=== PATIENT | female | born 1970 | race Caucasian/White ===

== ENCOUNTER 2018-01-23 13:48 | Emergency (ER) | payer OTHER ==
[~2018-01-23] VITALS: Ht 162.6 cm; Wt 81.7 kg
[~2018-01-23 13:48] MED LIST: ALBU90OI INH; CODGUAEL PO; Cyclobenzaprine5 MG PO; GABA300 PO; HIGH POTENCY TOP; HYDPAM50 PO; IBUP400 PO; IBUP800 PO; PRED10 PO; PROACE100 PO; PROMETHAZINE-D473 ML PO; Percocet 5-3251 EACH PO; Prednisone20 MG PO; Ultram50 MG PO; Zithromax250 MG PO
[2018-01-23] MEDS ORDERED: Flexi Joint Ta1 EAC1 PO (15:09)
[2018-01-23] MEDS ORDERED: IBUP600 PO (20:24)
== END 2018-01-23 21:35 | disposition home or self-care (01) ==
LOC: ER 13:48
DX: M19.011 Primary osteoarthritis, right shoulder (principal); F17.210 Nicotine dependence, cigarettes, uncomplicated; Z59.0 Homelessness; Z88.0 Allergy status to penicillin; Z88.8 Allergy status to other drugs, medicaments and biological substances; Z88.5 Allergy status to narcotic agent; Z79.899 Other long term (current) drug therapy; Z86.73 Personal history of transient ischemic attack (TIA), and cerebral infarction without residual deficits
CPT/HCPCS: 73030

== ENCOUNTER 2018-05-24 20:00 | Emergency (ER) | payer OTHER ==
[~2018-05-24] VITALS: Ht 162.6 cm; Wt 81.7 kg
[~2018-05-24 20:00] MED LIST changes: +Flexi Joint Ta1 EAC1 PO; +IBUP600 PO
[2018-05-24] MEDS ORDERED: IBUP800 PO (21:06)
== END 2018-05-24 21:09 | disposition home or self-care (01) ==
LOC: ER 20:00
DX: S60.221A Contusion of right hand, initial encounter (principal); F17.210 Nicotine dependence, cigarettes, uncomplicated; Z88.0 Allergy status to penicillin; Z88.8 Allergy status to other drugs, medicaments and biological substances; Z88.5 Allergy status to narcotic agent; Z79.899 Other long term (current) drug therapy; Z86.73 Personal history of transient ischemic attack (TIA), and cerebral infarction without residual deficits; W22.8XXA Striking against or struck by other objects, initial encounter
CPT/HCPCS: 73130; 99283-25

== ENCOUNTER 2018-09-30 02:14 | Emergency (ER) | payer OTHER ==
[~2018-09-30] VITALS: Ht 162.6 cm; Wt 83.9 kg
[~2018-09-30 02:14] MED LIST changes: +BENZ100A PO; +Flonase 0.05% N16 GM; +Prednisone50 MG PO; +TIOT18 INH
[2018-10-25] MEDS ORDERED: GABA600 PO (15:26)
== END 2018-09-30 04:18 | disposition home or self-care (01) ==
LOC: ER 02:14
DX: M79.662 Pain in left lower leg (principal); G89.29 Other chronic pain; F17.210 Nicotine dependence, cigarettes, uncomplicated; Z88.0 Allergy status to penicillin; Z88.5 Allergy status to narcotic agent; Z88.8 Allergy status to other drugs, medicaments and biological substances
CPT/HCPCS: 96372; 99282-25; J1885

== ENCOUNTER 2019-02-18 05:44 | Emergency (ER) | payer OTHER ==
[~2019-02-18] VITALS: Ht 162.6 cm; Wt 59.0 kg
[~2019-02-18 05:44] MED LIST changes: +GABA600 PO; +HYDHCL25 PO; +Tylenol325 MG PO
[2019-02-18] MEDS ORDERED: Tylenol325 MG PO (06:21)
[2019-02-18] MEDS ORDERED: Ultram50 MG PO (08:02)
[2019-02-18] MEDS ORDERED: IBUP800 PO (08:02)
== END 2019-02-18 08:35 | disposition home or self-care (01) ==
LOC: ER 05:44
DX: S93.402A Sprain of unspecified ligament of left ankle, initial encounter (principal); F17.210 Nicotine dependence, cigarettes, uncomplicated; Z86.73 Personal history of transient ischemic attack (TIA), and cerebral infarction without residual deficits; Z88.0 Allergy status to penicillin; Z88.1 Allergy status to other antibiotic agents; Z88.5 Allergy status to narcotic agent; Z88.8 Allergy status to other drugs, medicaments and biological substances; X58.XXXA Exposure to other specified factors, initial encounter
CPT/HCPCS: 73610; 99283-25

== ENCOUNTER 2019-03-15 17:41 | Emergency (ER) | payer OTHER ==
[~2019-03-15] VITALS: Ht 162.6 cm; Wt 68.0 kg
== END 2019-03-15 20:20 | disposition left against medical advice (07) ==
LOC: ER 17:41
DX: Z53.21 Procedure and treatment not carried out due to patient leaving prior to being seen by health care provider (principal)

== ENCOUNTER 2019-03-27 22:46 | Inpatient (IN) | payer OTHER ==
[~2019-03-27] VITALS: Ht 154.9 cm; Wt 63.0 kg
[2019-03-28 00:41] LABS: BASOPHILS ABSOLUTE AUTO 0.04 K/mm3 (0.00-0.23); BASOPHILS PERCENT AUTO 0 % (0-2); EOSINOPHILS PERCENT AUTO 0 % (0-6); Hematocrit 34.8 % (33.0-51.0); Hemoglobin 11.6 g/dL (11.5-16.0); IMMATURE GRAN ABSOLUTE AUTO 0.06 K/mm3 (0.00-0.10); IMMATURE GRAN PERCENT AUTO 0 % (0-1); LYMPHOCYTES ABSOLUTE AUTO 0.32 K/mm3 (0.84-5.20); LYMPHOCYTES PERCENT AUTO 2 % (21-46); MONOCYTES ABSOLUTE AUTO 0.11 K/mm3 (0.16-1.47); MONOCYTES PERCENT AUTO 1 % (4-13); Mean Corpuscular HGB 30.4 pg (26.0-34.0); Mean Corpuscular HGB Conc 33.3 g/dL (31.5-36.5); Mean Corpuscular Volume 91 fL (80-100); Mean Platelet Volume 9.1 fL (9.1-12.4); NEUTROPHILS ABSOLUTE AUTO 14.65 K/mm3 (1.96-9.15); NEUTROPHILS PERCENT AUTO 97 % (41-73); Platelet Count 242 K/mm3 (150-400); RDW Coefficient Variation 13.1 % (11.7-14.2); RDW Standard Deviation 43.1 fL (35.1-46.3); Red Blood Cell Count 3.82 M/mm3 (3.80-5.20); White Blood Cell Count 15.18 K/mm3 (4.00-11.30)
[2019-03-28 01:11] LABS: Alanine Aminotransfer (ALT/SGP 38 U/L (12-78); Albumin, Blood 2.4 g/dL (3.4-5.0); Albumin/Globulin Ratio 0.5 (0.8-1.8); Alk Phos 97 U/L (50-136); Anion Gap 9 mmol/L (6-16); Aspartate Aminotrans (AST/SGOT 35 U/L (12-37); Bilirubin, Total 1.6 mg/dL (0.1-1.0); Blood Urea Nitrogen 17 mg/dL (8-24); Bun/Creatinine Ratio 21.4 (12.0-20.0); CO2, Blood 26 mmol/L (21-32); Calcium, Blood 7.9 mg/dL (8.5-10.1); Chloride, Blood 99 mmol/L (98-108); Globulin, Blood 4.4 g/dL (2.2-4.0); Glomerular Filtration Rate >60 (60-); Glucose, Blood 80 mg/dL (70-99); Potassium, Blood 3.4 mmol/L (3.5-5.5); Sodium, Blood 134 mmol/L (136-145); Total Protein, Blood 6.8 g/dL (6.4-8.2)
[2019-03-28 03:13] LABS: Source, Urine Clean Catch
[2019-03-28 03:15] LABS: Appearance, Urine Hazy (Clear); Bilirubin, Urine 1+ (Neg); Blood, Urine 4+ (Neg); Color, Urine Amber (P-Yellow); Glucose Qualitative, Urine Neg (Neg); Ketones, Urine 1+ (Neg); Leukocyte Esterase, Urine 3+ (Neg); Nitrite, Urine Neg (Neg); Protein, Urine 2+ (Neg); Urobilinogen, Urine 2+ (Normal)
[2019-03-28 03:22] LABS: Bacteria Many /hpf; Red Blood Cells, Urine 0-2 /hpf (0-2); Squamous Epithelial Cells Few /hpf (Few); White Blood Cells, Urine 50-100 /hpf (0-5)
--- NOTE | 2019-03-28 08:10 | NUR ---
ADMIT NOTE- PT ADMITTED THROUGH THE ED FOR PEYLONEPHRITIS, PT URINE IS DARK AND ORANGE IN COLOR. PT C/O PAIN UPON ARRIVAL AND BEGAN CRYING. VITALS TAKEN AND BP WAS LOW. COMPLETED ADMIT TO THE BEST OF ABILITY PT BEGAN TO BECOME MORE LETHARGIC TIME PASSED. PT ALERT AND ORIENTED, STATED SHE HAS NEVER BEEN TREATED FOR ALCOHOL OR CHEMICAL DEPENDENCY, BUT DID ADMIT TO USING MARIJUANA FREQUENTLY. PT BP WAS LOWER ON REPEAT VITALS, PT REQUESTED TO BE ABLE TO SHOWER, NOT AT THIS TIME. SPOKE TO DR SPICER, NO SHOWERS AT THIS TIME, BED BATH OK, PT AWARE; TOWER OPERATOR PLANS TO ASSIST LATER IN THE SHIFT. PT SEEMS TO BE RUNNING OUT OF ENERGY AND BEGAN FALLING ASLEEP DURRING ADMIT. WILL HANG FLUID BOLUS AND RE-EVALUATE PT VITALS AFTER.
[2019-03-28] MEDS ORDERED: HYDHCL25 PO (08:57)
--- NOTE | 2019-03-28 13:09 | NUR ---
PT BP LOW VERY LETHARGIC, MORE SO THAN WHEN SHE ARRIVED, AT THAT TIME SHE WS CRYING AND SPEAKING TO STAFF. SPOKE TO DR JOYCE ABOUT BP AND FLUID BOLUS IS NEARLY COMPLETE AT THIS TIME. IV POTASSUIM WILL RUN WITH IVF AFTER THE BOLUS.
--- NOTE | 2019-03-28 13:41 | NUR ---
PT BP APPARENTLY NON-RESPONSIVE TO IVF. SPOKE TO DR SPICER, TRANSFER TO PCU D/T HYPOTENSION AND LETHARGY. CALLED PCU SPOKE TO PRAVEEN, SHE STATED PER JUAN MANUEL CANDELARIA TO BRING PT AND GIVE BEDSIDE REPORT.
--- NOTE | 2019-03-28 16:22 | NUR ---
TRANSFER NOTE- PT TRANSFERED TO PCU, BEDSIDE REPORT GIVEN TO SOLIS SPAULDING. PT HIGH SCALER WILL BE SOLIS MORELOS, NOT PRESENT AT THE TIME OF TRANSFER. SOLIS MORELOS CALLED WITH QUESTIONS (LOOKING FOR MEDICATIONS) MEDS TAKEN TO PCU. PT BP CONTINUES TO BE LOW SBP IN THE 80'S ON ARRIVAL TO PCU.
--- NOTE | 2019-03-28 17:04 | NUR ---
END OF SHIFT. PT CAME TO PCU FROM MEDICAL FLOOR TODAY FOR HYPOTENSIVE EPISODES. SHE IS RECEIVING NS AT 200ML/HR. SHE RECEIVED ABDOMINAL CT WITH CONTRAST THIS AFTERNOON. PT IS VERY SLEEPY AND IS DIFFICULT TO ROUSE UNLESS YOU RAISE YOUR VOICE. PER PATIENT SHE IS HOMELESS AND HAS RECENTLY HAD AN EPISODE OF RELAPSE ON METHAMPHETAMINES. SHE IS A SBA TO THE BATHROOM. SHE IS AO X 4 ON ARRIVAL TO PCU. PT DENIES ANY CP OR DISTRESS ON ARRIVAL TO PCU. WILL CONTINUE TO MONITOR THIS PATIENT UNTIL REPORT AND HAND OFF TO NOC SHIFT RN.
--- NOTE | 2019-03-29 01:35 | NUR ---
ASSUMED CARE AT 1900. YELLING OUT ALOT THEN. WORKED W/ EXPRESSING OF NEEDS AND SEEMS ORIENTED TO DETERMINE TYPE OF PAIN AND DISCOMFORT. MOSTLY DIVERSION AND POSITION CHANGE AND TALKING W/ STAFF GIVES CALMING COMFORT. ICE CREAM TAKEN FREQ. NO GI DISTRESS. KEEPING RM COOLER FOR START OF TEMP. AND REDUCED ALSO TYLENOL GIVEN ONCE FOR GENERAL BODY ACHE , FEW TIMES REPORTS WHEN VOIDING PAIN IN BACK. SEEMS TO SUBSIDE WHEN BACK TO BED. DOZING AT SHORT INTERVALS . ASSISTED W/ SHOWER RIGHT BEFORE MID NOC AND VERY RELAXING AND CALMING . OFF TO SLEEP FOR 1.5 HR. AFEBRILE. NO YELLING OUT NOW OR MAONING IN PAIN IN THIS LATER EVENING. EXPRESSES NEEDS IN POLITE MANNER AND MANY TIMES HAS STATED SHE HAS NOT DONE ANY DRUGS THAT WOULD CAUSE HER TO GO THRU WITHDRAWALS AND CONT TO DENY ANY S/S OR HALLUCINATIONS . DOES REPORT BAD DREAMS. DOES REPORT MARIJUANA USE AND NOTHING ELSE . LUNG REMAIN CLEAR . SOME DRY AND PARTIALLY MOIST COUGHING. REPORTS MARS DUE TO COUGHING. SATS WNL
[2019-03-29 03:58] LABS: Hematocrit 32.4 % (33.0-51.0); Hemoglobin 10.7 g/dL (11.5-16.0); Mean Corpuscular HGB 29.9 pg (26.0-34.0); Mean Corpuscular Volume 91 fL (80-100); Mean Platelet Volume 9.6 fL (9.1-12.4); Platelet Count 181 K/mm3 (150-400); RDW Coefficient Variation 13.4 % (11.7-14.2); RDW Standard Deviation 44.4 fL (35.1-46.3); Red Blood Cell Count 3.58 M/mm3 (3.80-5.20); White Blood Cell Count 9.99 K/mm3 (4.00-11.30)
[2019-03-29 04:18] LABS: Alanine Aminotransfer (ALT/SGP 33 U/L (12-78); Albumin, Blood 1.8 g/dL (3.4-5.0); Albumin/Globulin Ratio 0.5 (0.8-1.8); Alk Phos 77 U/L (50-136); Anion Gap 5 mmol/L (6-16); Aspartate Aminotrans (AST/SGOT 39 U/L (12-37); Bilirubin, Total 0.6 mg/dL (0.1-1.0); Blood Urea Nitrogen 11 mg/dL (8-24); Bun/Creatinine Ratio 19.5 (12.0-20.0); CO2, Blood 27 mmol/L (21-32); Calcium, Blood 7.4 mg/dL (8.5-10.1); Chloride, Blood 110 mmol/L (98-108); Creatinine, Blood 0.57 mg/dL (0.40-1.00); Globulin, Blood 3.7 g/dL (2.2-4.0); Glomerular Filtration Rate >60 (60-); Glucose, Blood 160 mg/dL (70-99); Potassium, Blood 3.6 mmol/L (3.5-5.5); Sodium, Blood 142 mmol/L (136-145); Total Protein, Blood 5.5 g/dL (6.4-8.2)
--- NOTE | 2019-03-29 06:06 | NUR ---
SHIFT SUMMARY. CALM COOPERATIVE. ORIENTED AND APPROPRIATE WHEN AWAKENING. NO FURTHER GENERAL ACHING AND MARS REPORTED . AFEBRILE AND COLD NOW. BP LOWER . ASYMPTOMATIC. ONE EPISODE OF BEING SLIGHTLY DIAPHORETIC. NO FURTHER REPORT OF PAIN WHEN VOIDING. URINE CLEAR YELLOW.
--- NOTE | 2019-03-29 13:18 | NUR ---
Cat has been sleeping very often this morning, waking up to verbal stimuli. She requested to be able to go outside, but at the time she was still wearing a quality assurance monitor final as well as receiving continuous IV fluids, so this was not an option. She was taken on a walk by Eladia Rosa CNA, and mid way down the hallway, she became very weak and knees buckled. The DATA MODELING ARCHITECT used the gait belt to prevent the pt from falling, and assisted her into a wheelchair. The pt was at this time sobbing and upset over multiple stated reasons, "being weak", not being able to reach her "off and on boyfriend" because he did not have a phone, and that this same "boyfriend" had started hanging out with the wrong people back in [place] and had been getting back into trouble. She has again had 2 more episodes of sudden sobbing, once stating that her legs were hurting, but this was resolved with therapeutic listening, and application of warm blankets which the pt stated made it "feel amazing". Her daughter also happened to arrive at the time and conversation with her daughter also seemed to calm the patient down. She is back to sleep now.
--- NOTE | 2019-03-29 17:04 | NUR ---
The pt appears to be sleeping soundly; respirations are even and unlabored, lying on her left side. Earlier this afternoon she was again sobbing, stating that her pain in her lower back and right lower abdomen was terrible. She was given Tylenol and a heating pad for her back, which she stated helped "a little". She has been sleeping now for about an hour.
--- NOTE | 2019-03-29 19:18 | NUR ---
SINCE ARRIVAL TO UNIT AT 1730, PT HAS BEEN APPROPRIATE. PLEASANT AND COOPERATIVE. ASKED OT GO OUT TO SMOKE AND GET FRESH AIR BUT UNDERSTOOD REASONING WHY.
--- NOTE | 2019-03-30 04:48 | NUR ---
TUBING OILER SUMMARY NO ACUTE CHANGES THIS SHIFT. PT AAOX4 AND PLEASANT. STANDBY ASSIST TO THE BATHROOM, PT IS FAIRLY STEADY BUT NOT SAFE TO AMBULATE ALONE. PT ASKS FREQUENTLY TO GO OUTSIDE TO SMOKE, THIS RN EDUCATED PT ABOUT FALL RISK. PT HAS BEEN GETTING NS AT 200 ML/HR CONTINUOUSLY AND HAS BEEN GETTING UP TO URINATE QUITE OFTEN THROUGH THE NIGHT. PT REQUESTED SLEEP AID, OBTAINED ORDER FROM HOSPITALIST FOR MELATONIN. VSS, WILL CONTINUE TO MONITOR.
[2019-03-30 05:40] LABS: BASOPHILS ABSOLUTE AUTO 0.03 K/mm3 (0.00-0.23); BASOPHILS PERCENT AUTO 0 % (0-2); EOSINOPHILS ABSOLUTE AUTO 0.11 K/mm3 (0.00-0.68); EOSINOPHILS PERCENT AUTO 2 % (0-6); Hemoglobin 11.1 g/dL (11.5-16.0); IMMATURE GRAN ABSOLUTE AUTO 0.08 K/mm3 (0.00-0.10); IMMATURE GRAN PERCENT AUTO 1 % (0-1); LYMPHOCYTES ABSOLUTE AUTO 1.29 K/mm3 (0.84-5.20); LYMPHOCYTES PERCENT AUTO 18 % (21-46); MONOCYTES ABSOLUTE AUTO 0.49 K/mm3 (0.16-1.47); MONOCYTES PERCENT AUTO 7 % (4-13); Mean Corpuscular HGB 29.3 pg (26.0-34.0); Mean Corpuscular HGB Conc 32.6 g/dL (31.5-36.5); Mean Corpuscular Volume 90 fL (80-100); Mean Platelet Volume 10.1 fL (9.1-12.4); NEUTROPHILS ABSOLUTE AUTO 5.11 K/mm3 (1.96-9.15); NEUTROPHILS PERCENT AUTO 72 % (41-73); Platelet Count 211 K/mm3 (150-400); RDW Coefficient Variation 13.5 % (11.7-14.2); RDW Standard Deviation 44.5 fL (35.1-46.3); Red Blood Cell Count 3.79 M/mm3 (3.80-5.20); White Blood Cell Count 7.11 K/mm3 (4.00-11.30)
[2019-03-30 06:06] LABS: Albumin, Blood 1.8 g/dL (3.4-5.0); Anion Gap 5 mmol/L (6-16); Blood Urea Nitrogen 5 mg/dL (8-24); Bun/Creatinine Ratio 9.6 (12.0-20.0); CO2, Blood 26 mmol/L (21-32); Calcium, Blood 7.2 mg/dL (8.5-10.1); Chloride, Blood 111 mmol/L (98-108); Creatinine, Blood 0.52 mg/dL (0.40-1.00); Glomerular Filtration Rate >60 (60-); Glucose, Blood 98 mg/dL (70-99); Phosphorus, Blood 2.6 mg/dL (2.5-4.9); Potassium, Blood 3.8 mmol/L (3.5-5.5); Sodium, Blood 142 mmol/L (136-145)
--- NOTE | 2019-03-30 19:00 | NUR ---
PT. LYING IN BED CRYING WITH PAIN IN ABDOMEN AND BACK, ZOFRAN GIVEN ALONG WITH TYLENOL. HAS BEEN OUT TO SMOKE 3 TIMES TODAY BUT SHE STATES ONLY 2 TIMES. SINCE GOING OUT SHE HAS DEVELOPED A HACKY COUGH SHE SAYS ITS FROM THE CHAR FIRE SMOKE. GAVE HER TYLENOL AND ZOFRAN, WHICH WORKED FOR HER PAIN THIS AM. O NOTEABLE CHANGES THIS SHIFT.
--- NOTE | 2019-03-31 04:33 | NUR ---
PT CONTINUED TO COMPLAIN OF BACK PAIN. PT REFUSED TYLENOL WHEN OFFERRED. THIS RN ATTEMPTED TO GET PYRIDIUM IN AN ATTEMPT TO HELP, BUT THE PT HAD FALLEN ASLEEP. PT'S REQUESTS WERE MET. VSS. WILL CONTINUE TO MONITOR.
[2019-03-31] MEDS ORDERED: Bactrim Ds Tab1 EACH PO (10:39)
--- NOTE | 2019-03-31 11:45 | NUR ---
PT. DISCHARGED HOME. DAUGHTER PICKING HER UP. REFUSED WC RIDE OUT, STATES "MY DAUGHTER WILL BE HERE ANY TIME I'LL JUST GO DOWN AND WAIT FOR HER." PT. IS HOMELESS AND WILL BE STAYING WITH A FRIEND IN HER CAR.
== END 2019-03-31 11:50 | disposition home or self-care (01) | DRG 871 ==
LOC: ER 22:46 → MEDS 03-28 05:47 → PCU 03-28 13:58 → MEDS 03-29 17:26 → ENPENDDIS 03-31 10:26 → MEDS 03-31 11:50
PROVIDERS: Emergency Medicine; Internal Medicine; ADMIT Internal Medicine
DX: A41.51 Sepsis due to Escherichia coli [E. coli] (principal); N15.1 Renal and perinephric abscess; N12 Tubulo-interstitial nephritis, not specified as acute or chronic; E87.1 Hypo-osmolality and hyponatremia; E87.6 Hypokalemia; E83.51 Hypocalcemia; F17.210 Nicotine dependence, cigarettes, uncomplicated; J45.909 Unspecified asthma, uncomplicated; Z59.0 Homelessness; Z88.1 Allergy status to other antibiotic agents; Z88.5 Allergy status to narcotic agent; Z88.0 Allergy status to penicillin; Z88.8 Allergy status to other drugs, medicaments and biological substances; Z86.73 Personal history of transient ischemic attack (TIA), and cerebral infarction without residual deficits
CPT/HCPCS: 36415; 71046; 74160; 74176; 80053; 80069; 81001; 81025; 83605; 83690; 84484; 85025; 85027; 87040; 87077; 87086; 87186; 94760; 96361; 96365; 96375; 97161; 99285-25; A9270; G0480; J1650; J1885; J1940; J2185; J2405; J3370; J7030; J7120; Q9967

== ENCOUNTER 2019-05-02 11:18 | Emergency (ER) | payer OTHER ==
[~2019-05-02] VITALS: Ht 162.6 cm; Wt 62.6 kg
[~2019-05-02 11:18] MED LIST changes: +Bactrim Ds Tab1 EACH PO
[2019-05-02] MEDS ORDERED: Bactrim Ds Tab1 EACH PO (11:57)
== END 2019-05-02 12:01 | disposition home or self-care (01) ==
LOC: ER 11:18
DX: L02.412 Cutaneous abscess of left axilla (principal); F41.9 Anxiety disorder, unspecified; Z88.5 Allergy status to narcotic agent; Z88.0 Allergy status to penicillin; Z88.1 Allergy status to other antibiotic agents; Z88.8 Allergy status to other drugs, medicaments and biological substances; Z79.899 Other long term (current) drug therapy; Z86.73 Personal history of transient ischemic attack (TIA), and cerebral infarction without residual deficits
CPT/HCPCS: 10060; 87070; 87075; 87077; 87147; 87186; 87205; 99282-25

== ENCOUNTER 2019-05-25 13:04 | Emergency (ER) | payer OTHER ==
[~2019-05-25] VITALS: Ht 162.6 cm; Wt 64.9 kg
== END 2019-05-25 15:19 | disposition home or self-care (01) ==
LOC: ER 13:04
DX: S01.21XA Laceration without foreign body of nose, initial encounter (principal); S01.81XA Laceration without foreign body of other part of head, initial encounter; Y04.8XXA Assault by other bodily force, initial encounter; Z88.5 Allergy status to narcotic agent; Z88.8 Allergy status to other drugs, medicaments and biological substances; Z88.0 Allergy status to penicillin; Z88.1 Allergy status to other antibiotic agents; F17.210 Nicotine dependence, cigarettes, uncomplicated
CPT/HCPCS: 70450; 99284-25

== ENCOUNTER 2019-08-01 11:05 | Emergency (ER) | payer OTHER ==
[~2019-08-01] VITALS: Ht 162.6 cm; Wt 63.5 kg
[2019-08-01 12:11] LABS: BASOPHILS ABSOLUTE AUTO 0.06 K/mm3 (0.00-0.23); BASOPHILS PERCENT AUTO 1 % (0-2); EOSINOPHILS ABSOLUTE AUTO 0.19 K/mm3 (0.00-0.68); EOSINOPHILS PERCENT AUTO 2 % (0-6); Hemoglobin 13.4 g/dL (11.5-16.0); IMMATURE GRAN ABSOLUTE AUTO 0.03 K/mm3 (0.00-0.10); IMMATURE GRAN PERCENT AUTO 0 % (0-1); LYMPHOCYTES ABSOLUTE AUTO 2.25 K/mm3 (0.84-5.20); LYMPHOCYTES PERCENT AUTO 28 % (21-46); MONOCYTES ABSOLUTE AUTO 0.51 K/mm3 (0.16-1.47); MONOCYTES PERCENT AUTO 6 % (4-13); Mean Corpuscular HGB 29.8 pg (26.0-34.0); Mean Corpuscular HGB Conc 32.7 g/dL (31.5-36.5); Mean Corpuscular Volume 91 fL (80-100); Mean Platelet Volume 9.4 fL (9.1-12.4); NEUTROPHILS ABSOLUTE AUTO 5.13 K/mm3 (1.96-9.15); NEUTROPHILS PERCENT AUTO 63 % (41-73); Platelet Count 240 K/mm3 (150-400); RDW Coefficient Variation 13.3 % (11.7-14.2); RDW Standard Deviation 44.9 fL (35.1-46.3); Red Blood Cell Count 4.49 M/mm3 (3.80-5.20); White Blood Cell Count 8.17 K/mm3 (4.00-11.30)
[2019-08-01 12:30] LABS: Alanine Aminotransfer (ALT/SGP 121 U/L (12-78); Albumin, Blood 3.5 g/dL (3.4-5.0); Albumin/Globulin Ratio 0.9 (0.8-1.8); Alk Phos 85 U/L (50-136); Anion Gap 5 mmol/L (6-16); Aspartate Aminotrans (AST/SGOT 58 U/L (12-37); Bilirubin, Total 0.6 mg/dL (0.1-1.0); Blood Urea Nitrogen 10 mg/dL (8-24); Bun/Creatinine Ratio 17.7 (12.0-20.0); CO2, Blood 29 mmol/L (21-32); Calcium, Blood 8.8 mg/dL (8.5-10.1); Chloride, Blood 105 mmol/L (98-108); Creatinine, Blood 0.57 mg/dL (0.40-1.00); Globulin, Blood 4.1 g/dL (2.2-4.0); Glomerular Filtration Rate >60 (60-); Glucose, Blood 94 mg/dL (70-99); Potassium, Blood 4.1 mmol/L (3.5-5.5); Sodium, Blood 139 mmol/L (136-145); Total Protein, Blood 7.6 g/dL (6.4-8.2); Troponin I <0.015 ng/mL (0.000-0.040)
[2019-08-01] MEDS ORDERED: BENZ100A PO (13:19)
[2019-08-01] MEDS ORDERED: ALBU90OI INH (13:19)
[2019-08-01] MEDS ORDERED: Prednisone20 MG PO (13:19)
[2019-08-01] MEDS ORDERED: Zithromax250 MG PO (13:23)
== END 2019-08-01 13:30 | disposition home or self-care (01) ==
LOC: ER 11:05
PROVIDERS: Physician Assistant
DX: J45.901 Unspecified asthma with (acute) exacerbation (principal); F41.9 Anxiety disorder, unspecified; F17.210 Nicotine dependence, cigarettes, uncomplicated; Z88.5 Allergy status to narcotic agent; Z88.8 Allergy status to other drugs, medicaments and biological substances; Z88.0 Allergy status to penicillin; Z86.73 Personal history of transient ischemic attack (TIA), and cerebral infarction without residual deficits
CPT/HCPCS: 36415; 71046; 80053; 84484; 85025; 93005; 93010; 94640; 96374; 96375; 99284-25; J1885; J2405; J7512

== ENCOUNTER 2019-11-11 12:52 | Emergency (ER) | payer OTHER ==
[~2019-11-11] VITALS: Ht 162.6 cm; Wt 63.5 kg
[~2019-11-11 12:52] MED LIST changes: +Ventolin/Prove6.7 GM INH
== END 2019-11-11 15:40 | disposition home or self-care (01) ==
LOC: ER 12:52
DX: S80.862A Insect bite (nonvenomous), left lower leg, initial encounter (principal); S80.861A Insect bite (nonvenomous), right lower leg, initial encounter; S30.860A Insect bite (nonvenomous) of lower back and pelvis, initial encounter; F17.210 Nicotine dependence, cigarettes, uncomplicated; Z59.0 Homelessness; Z88.0 Allergy status to penicillin; Z79.899 Other long term (current) drug therapy; W57.XXXA Bitten or stung by nonvenomous insect and other nonvenomous arthropods, initial encounter
CPT/HCPCS: 99283; J1100

== ENCOUNTER → 2020-04-05 | Outpatient (CLI) | payer OTHER ==
[~2020-04-05] MED LIST changes: +KETO10 PO; +LINE600 PO; +VISBIOME PROBIOTIC PO
== END | disposition home or self-care (01) ==
LOC: LAB SHORT 19:11 → LAB 19:11
DX: L03.011 Cellulitis of right finger (principal)
CPT/HCPCS: 87070; 87077; 87147; 87186; 87205

== ENCOUNTER 2020-04-10 19:29 | Inpatient (IN) | payer OTHER ==
[~2020-04-10] VITALS: Ht 162.6 cm; Wt 70.0 kg
[~2020-04-10 19:29] MED LIST changes: -KETO10 PO; -LINE600 PO; -VISBIOME PROBIOTIC PO
[2020-04-10 20:08] LABS: BASOPHILS ABSOLUTE AUTO 0.05 K/mm3 (0.00-0.23); BASOPHILS PERCENT AUTO 1 % (0-2); EOSINOPHILS ABSOLUTE AUTO 0.24 K/mm3 (0.00-0.68); EOSINOPHILS PERCENT AUTO 3 % (0-6); Hematocrit 41.4 % (33.0-51.0); Hemoglobin 12.8 g/dL (11.5-16.0); IMMATURE GRAN ABSOLUTE AUTO 0.04 K/mm3 (0.00-0.10); IMMATURE GRAN PERCENT AUTO 0 % (0-1); LYMPHOCYTES ABSOLUTE AUTO 1.82 K/mm3 (0.84-5.20); LYMPHOCYTES PERCENT AUTO 19 % (21-46); MONOCYTES ABSOLUTE AUTO 0.53 K/mm3 (0.16-1.47); MONOCYTES PERCENT AUTO 6 % (4-13); Mean Corpuscular HGB 29.6 pg (26.0-34.0); Mean Corpuscular HGB Conc 30.9 g/dL (31.5-36.5); Mean Corpuscular Volume 96 fL (80-100); Mean Platelet Volume 9.8 fL (9.1-12.4); NEUTROPHILS ABSOLUTE AUTO 6.71 K/mm3 (1.96-9.15); NEUTROPHILS PERCENT AUTO 72 % (41-73); Platelet Count 249 K/mm3 (150-400); RDW Coefficient Variation 13.1 % (11.7-14.2); RDW Standard Deviation 46.5 fL (35.1-46.3); Red Blood Cell Count 4.33 M/mm3 (3.80-5.20); White Blood Cell Count 9.39 K/mm3 (4.00-11.30)
[2020-04-10 20:27] LABS: Alanine Aminotransfer (ALT/SGP 54 U/L (12-78); Albumin, Blood 2.9 g/dL (3.4-5.0); Albumin/Globulin Ratio 0.7 (0.8-1.8); Alk Phos 75 U/L (50-136); Anion Gap 3 mmol/L (6-16); Aspartate Aminotrans (AST/SGOT 26 U/L (12-37); Bilirubin, Total 0.2 mg/dL (0.1-1.0); Blood Urea Nitrogen 15 mg/dL (8-24); Bun/Creatinine Ratio 16.8 (12.0-20.0); CO2, Blood 25 mmol/L (21-32); Calcium, Blood 8.4 mg/dL (8.5-10.1); Chloride, Blood 110 mmol/L (98-108); Creatinine, Blood 0.89 mg/dL (0.40-1.00); Glomerular Filtration Rate >60 (60-); Glucose, Blood 90 mg/dL (70-99); Potassium, Blood 4.3 mmol/L (3.5-5.5); Sodium, Blood 138 mmol/L (136-145); Total Protein, Blood 6.9 g/dL (6.4-8.2)
--- NOTE | 2020-04-11 07:02 | NUR ---
04/11/20 0640 AWAKENED FOR AM MED. ASSISTED TO BR FOR VOIDING. DROWSY. VITALS STABLE. RT HAND ELEVATED ON PILLOW ALL SHIFT. ENCOURAGED ORAL INTAKE.
--- NOTE | 2020-04-11 18:39 | NUR ---
SHIFT SUMMARY PT MEDICATED FOR PAIN X2 THIS SHIFT PER EMAR. PT SURGERY RESCHEDULED FOR TOMORROW AND IS NPO AFTER MIDNIGHT. NO ACUTE CHANGES THIS SHIFT. PT HAD BOUTS OF CRYING STATING "THIS IS FRUSTRATING, MY HAND HURTS." HER AFFECT IS CALM AND COOPERATIVE AFTER THIS EVENING'S PAIN MEDICATION ADMINISTRATION.
--- NOTE | 2020-04-12 04:08 | NUR ---
SHIFT SUMMARY PT HAS RESTED MOST OF THE NIGHT. PT PAIN APPEARS TO BE WELL CONTROLLED THIS SHIFT. MEDICATED FOR PAIN PRN PER EMAR. PLAN IS FOR I&D OF RIGHT HAND TODAY. PT HAS BEEN NPO SINCE MIDNIGHT. NO ACUTE CHANGES. BED IN LOWEST POSITION, CALL LIGHT WITHIN REACH.
[2020-04-12 05:04] LABS: BASOPHILS ABSOLUTE AUTO 0.04 K/mm3 (0.00-0.23); BASOPHILS PERCENT AUTO 1 % (0-2); EOSINOPHILS ABSOLUTE AUTO 0.26 K/mm3 (0.00-0.68); EOSINOPHILS PERCENT AUTO 4 % (0-6); Hematocrit 35.3 % (33.0-51.0); Hemoglobin 11.3 g/dL (11.5-16.0); IMMATURE GRAN ABSOLUTE AUTO 0.04 K/mm3 (0.00-0.10); IMMATURE GRAN PERCENT AUTO 1 % (0-1); LYMPHOCYTES ABSOLUTE AUTO 2.14 K/mm3 (0.84-5.20); LYMPHOCYTES PERCENT AUTO 32 % (21-46); MONOCYTES ABSOLUTE AUTO 0.55 K/mm3 (0.16-1.47); MONOCYTES PERCENT AUTO 8 % (4-13); Mean Corpuscular HGB 29.5 pg (26.0-34.0); Mean Corpuscular Volume 92 fL (80-100); Mean Platelet Volume 9.6 fL (9.1-12.4); NEUTROPHILS ABSOLUTE AUTO 3.72 K/mm3 (1.96-9.15); NEUTROPHILS PERCENT AUTO 55 % (41-73); Platelet Count 241 K/mm3 (150-400); RDW Coefficient Variation 12.9 % (11.7-14.2); RDW Standard Deviation 43.7 fL (35.1-46.3); Red Blood Cell Count 3.83 M/mm3 (3.80-5.20); White Blood Cell Count 6.75 K/mm3 (4.00-11.30)
[2020-04-12 05:41] LABS: Alanine Aminotransfer (ALT/SGP 42 U/L (12-78); Albumin, Blood 2.3 g/dL (3.4-5.0); Albumin/Globulin Ratio 0.6 (0.8-1.8); Alk Phos 65 U/L (50-136); Anion Gap 3 mmol/L (6-16); Aspartate Aminotrans (AST/SGOT 21 U/L (12-37); Bilirubin, Total 0.2 mg/dL (0.1-1.0); Blood Urea Nitrogen 25 mg/dL (8-24); Bun/Creatinine Ratio 30.3 (12.0-20.0); CO2, Blood 27 mmol/L (21-32); Calcium, Blood 8.2 mg/dL (8.5-10.1); Chloride, Blood 112 mmol/L (98-108); Creatinine, Blood 0.82 mg/dL (0.40-1.00); Globulin, Blood 3.7 g/dL (2.2-4.0); Glomerular Filtration Rate >60 (60-); Glucose, Blood 92 mg/dL (70-99); Potassium, Blood 4.8 mmol/L (3.5-5.5); Sodium, Blood 142 mmol/L (136-145); Vancomycin, Trough 8.1 ug/mL (5.0-10.0)
--- NOTE | 2020-04-12 13:10 | NUR ---
INTO SDS VIA GURNEY FROM MED ROOM. History, Chart, Medications and Allergies reviewed before start of procedure.Patient confirms NPO status and agrees with scheduled surgery. Lungs clear T/O to Auscultation.
--- NOTE | 2020-04-12 15:24 | NUR ---
04/12/20 1524 Yareli Prescott VERIFICATIONS, AUDITS.
--- NOTE | 2020-04-12 16:21 | NUR ---
SHIFT SUMMARY PT IS A/O X 4 AND HAS BEEN EMOTIOALLY LABILE THROUGHOUT THE DAY. SHE NAPPED ON AND OFF WHILE WAITING FOR HER PROCEDURE. HE S.O. HAS BEEN AT THE BEDSIDE WITH HER AND THEY APPEARED TO BE ARGUING AT ONE POINT BUT THEN SHE FELL BACK ASLEEP AND THERE HAVE BEEN NO OTHER ISSUES OBSERVED. EARLY THIS AFTERNOON PT WAS TAKEN TO DAY SURGERY FOR I/D OF HER RIGHT HAND. SHE RETURNED TO HER ROOM AND WAS ASSISTED TO BED. HER VITALS ARE STABLE AND SHE IS RESTING IN BED. SHE IS ABLE TO MAKE HER NEEDS KNOWN AND HAS HER CALL LIGHT IN REACH.
--- NOTE | 2020-04-12 17:10 | NUR ---
PT IS INSISTING ON GOING DOWNSTAIRS TO SMOKE. THE RISKS WERE EXPLAINED TO HER ALONG WITH THE SAFETY ISSUE OF HER BEING POST OP. THE PT INSISTS THAT SHE "FEELS FINE". DR STRONG WAS NOTIFIED. IT WAS EXPLAINED AGAIN TO THE PT THAT IT IS NOT THE SAFEST CHOICE FOR HER TO LEAVE HER ROOM AT THIS TIME TO GO SMOKE. HER S.O. IS AT THE BEDSIDE WITH HER AND SHE REPORTS THAT HE CAN TAKE HER DOWN SAFELY. THE CHARGE NURSE WAS NOTIFIED.
[2020-04-12 21:46] LABS: Vancomycin, Trough 15.3 ug/mL (5.0-10.0)
--- NOTE | 2020-04-12 21:54 | NUR ---
1930 PTS RIGHT HAND SHELBY WRAP DRESSING DRY AND INTACT; THIS NURSE REVIEWED HOSPITAL SMOKING POLICY WITH PATIENT AND PATIENT WILL ADVISE NURSING STAFF WHEN SHE DEPARTS AND RETURNS. [address] [facility] LEVEL 15.3; PHARMACIST MARIEL NOTIFIED BY THIS NURSE.
--- NOTE | 2020-04-13 03:42 | NUR ---
SHIFT SUMMARY: 49 Y/O FEMALE RESTED COMFORTABLY ALL SHIFT; RIGHT HAND SHELBY WRAP DRESSING DRY AND INTACT; C/O RIGHT HAND PAIN RATED 8/10 WITH TORADOL 15MG IVP GIVEN TWICE AND TYLENOL 65OMG PO GIVEN WITH RELIEF FELT; PT CONTINUES TO SMOKE OUTSIDE AND IS ADVISING STAFF OF DEPARTURE AND RETURN TIMES (LESS THAN 30 MINUTES); ALERT AND ORIENTED X 4; BED LOW POSITION WITH CALL LIGHT AT SIDE.
[2020-04-13 05:16] LABS: BASOPHILS ABSOLUTE AUTO 0.02 K/mm3 (0.00-0.23); BASOPHILS PERCENT AUTO 0 % (0-2); EOSINOPHILS ABSOLUTE AUTO 0.01 K/mm3 (0.00-0.68); EOSINOPHILS PERCENT AUTO 0 % (0-6); Hematocrit 34.3 % (33.0-51.0); Hemoglobin 11.3 g/dL (11.5-16.0); IMMATURE GRAN ABSOLUTE AUTO 0.03 K/mm3 (0.00-0.10); IMMATURE GRAN PERCENT AUTO 0 % (0-1); LYMPHOCYTES ABSOLUTE AUTO 1.43 K/mm3 (0.84-5.20); LYMPHOCYTES PERCENT AUTO 16 % (21-46); MONOCYTES ABSOLUTE AUTO 0.51 K/mm3 (0.16-1.47); MONOCYTES PERCENT AUTO 6 % (4-13); Mean Corpuscular HGB 29.5 pg (26.0-34.0); Mean Corpuscular HGB Conc 32.9 g/dL (31.5-36.5); Mean Corpuscular Volume 90 fL (80-100); Mean Platelet Volume 9.6 fL (9.1-12.4); NEUTROPHILS PERCENT AUTO 78 % (41-73); Platelet Count 263 K/mm3 (150-400); RDW Coefficient Variation 12.3 % (11.7-14.2); RDW Standard Deviation 39.8 fL (35.1-46.3); Red Blood Cell Count 3.83 M/mm3 (3.80-5.20)
[2020-04-13 05:57] LABS: Anion Gap 6 mmol/L (6-16); Blood Urea Nitrogen 20 mg/dL (8-24); CO2, Blood 25 mmol/L (21-32); Chloride, Blood 109 mmol/L (98-108); Creatinine, Blood 0.77 mg/dL (0.40-1.00); Glomerular Filtration Rate >60 (60-); Glucose, Blood 153 mg/dL (70-99); Magnesium, Blood 1.8 mg/dL (1.6-2.4); Potassium, Blood 4.3 mmol/L (3.5-5.5); Sodium, Blood 140 mmol/L (136-145)
--- NOTE | 2020-04-13 17:56 | NUR ---
SHIFT SUMMARY PATIENT IS ALERT, ORIENTED, AND INDEPENDENT IN THE ROOM THIS SHIFT. PATIENT HAS BEEN MEDICATED PER EMAR FOR PAIN THROUGHOUT THIS SHIFT. DRESSING ON WOUND ON THE RIGHT HAND CHANGED THIS AFTERNOON PER DR DE GUZMAN'S ORDERS. PATIENT'S S/O IN THE ROOM THIS AM THEN AGAIN THIS AFTERNOON. PATIENT ON FREQUENT WALKS THIS SHIFT. PATIENT CURRENTLY SITTING UP IN ROOM EATING DINNER.
--- NOTE | 2020-04-13 22:40 | NUR ---
2000 PT RESTING COMFORTABLY IN BED WITH RIGHT HAND SHELBY WRAP BANDAGE DRY AND INTACT AND ELEVATED UP ON TWO PILLOWS; CAPILLARY REFILL LESS THAN 3 SECONDS; HAPPY AND COOPERATIVE.
--- NOTE | 2020-04-14 04:53 | NUR ---
SHIFT SUMMARY: 49 Y/O FEMALE RESTED COMFORTABLY ALL SHIFT WITH RIGHT HAND SHELBY WRAP DRESSING DRY AND INTACT; PT DID NOT LEAVE UNIT TO SMOKE WITH ZERO URGED VOICED; PT C/O RIGHT HAND PAIN 03/10 WITH TORADOL 15MG IVP GIVEN X 2 WITH RELIEF FELT; PT UP AD MARQUITA; PTS RIGHT ARM ELEVATED ON 1 PILLOW; BED LOW POSITION WITH CALL LIGHT AT SIDE; CONTACT PRECAUTIONS MAINTAINED.
--- NOTE | 2020-04-14 17:32 | NUR ---
SHIFT SUMMARY PATIENT ALERT, ORIENTED, AND INDEPENDENT THIS SHIFT. PATIENT HAS TAKEN FREQUENT WALKS THIS SHIFT. PATIENT'S SIGNIFICANT OTHER IN THE ROOM FREQUENTLY THIS SHIFT. PATIENT'S IVS WENT BAD THIS SHIFT, MULTIPLE ATTEMPTS MADE TO START A NEW IV BY MULTIPLE NURSES, WITHOUT SUCCESS. DR STRONG CONTACTED, NO IV ORDER RECEIVED, IV MEDICATIONS WERE CHANGED TO ORAL MEDICATIONS. DR DE GUZMAN IN THE ROOM AROUND NOON FOR DRESSING CHANGE. PATIENT CURRENTLY OUT OF ROOM WALKING AROUND.
--- NOTE | 2020-04-14 21:32 | NUR ---
PT RESTING COMFORTABLY IN BED; RIGHT HAND SHELBY WRAP DRESSING DRY AND INTACT.
--- NOTE | 2020-04-15 04:03 | NUR ---
SHIFT SUMMARY: 49 Y/O FEMALE RESTED COMFORTABLY ALL SHIFT; PTS RIGHT HAND SHELBY WRAP DRESSING DRY AND INTACT; PT HAS MINIMAL PAIN WITH TORADOL 10MG PO GIVEN; PT UP TWICE GOING OUTSIDE SMOKE CIGARETTES AND RETURNED TIMELY MANNER; BED LOW POSITION WITH CALL LIGHT AT SIDE.
[2020-04-15] MEDS ORDERED: KETO10 PO (11:52)
[2020-04-15] MEDS ORDERED: LINE600 PO (11:53)
[2020-04-15] MEDS ORDERED: VISBIOME PROBIOTIC PO (11:54)
--- NOTE | 2020-04-15 13:29 | NUR ---
PT DISCHARGED THE PT AND HER SO VERBALIZED UNDERSTANDING OF THE DC INSTRUCTIONS, THE PTS RIGHT HAND WOUND DRESSING WAS CHANGED USEING CLEAN TECHNIQUE, THE PTS SO WAS INSTRUCTED ON HOW TO CLEAN AND APPLY THE DRESSING HE VERBALIZED UNDERSTANDING, THE PT WAS REMINDED TO CALL ON FRIDAY TO SCHEDULE FOLLOW UP APPOINTMENTS WITH HER PCP AND WITH THE ORTHOPEDIC DOCTOR, PTS PRESCRIPTONS WERE FAXED TO [facility] ON [facility] PER HER REQUEST, THE PT APPEARED TO BE BREATHING EASILY AT THE TIME OF DC, THE PT DECLINED A WHEELCHAIR AND WALKED OUT
--- NOTE | 2020-04-15 13:34 | NUR ---
WOUND DRESSING CHANGE THE PTS DRESSING WAS REMOVED THE WOUND WAS CLEANED USING PEROXIDE INSTRUCTED, 4X4 GAUZE APPLIED BETWEEN THE FINGERS, KURLEX WRAP APPLIED AND COVERED ALL WITH CLEAN SHELBY WRAP, PT TOLERATED WELL
== END 2020-04-15 13:00 | disposition home or self-care (01) | DRG 603 ==
LOC: ER 19:29 → MEDS 19:30
PROVIDERS: Internal Medicine; Orthopaedic Surgery; Physician Assistant; ADMIT Internal Medicine
PROC: 0HDFXZZ Extraction of Right Hand Skin, External Approach (ICD-10-PCS; principal; 2020-04-12 13:30)
DX: L03.113 Cellulitis of right upper limb (principal); L02.511 Cutaneous abscess of right hand; F17.210 Nicotine dependence, cigarettes, uncomplicated; Z86.73 Personal history of transient ischemic attack (TIA), and cerebral infarction without residual deficits; B95.62 Methicillin resistant Staphylococcus aureus infection as the cause of diseases classified elsewhere; Z20.828 Contact with and (suspected) exposure to other viral communicable diseases; Z59.0 Homelessness
CPT/HCPCS: 36415; 73120; 73200; 73201; 80048; 80053; 80202; 81025; 83735; 85025; 85651; 86140; 87070; 87071; 87075; 87077; 87147; 87186; 87205; 96365; 96372; 96375; 96376; 97110; 97165; 99285-25; A9270; G0378; J1100; J1200; J1650; J1885; J2250; J2270; J2405; J2704; J3010; J3370; J7030; J7050; J7120; Q9967; U0002

== ENCOUNTER → 2020-11-24 | Outpatient (CLI) | payer OTHER ==
[~2020-11-24] MED LIST changes: +KETO10 PO; +LINE600 PO; +VISBIOME PROBIOTIC PO
== END | disposition home or self-care (01) ==
LOC: LAB SHORT 18:47 → LAB EV 18:47
DX: L02.411 Cutaneous abscess of right axilla (principal)
CPT/HCPCS: 87070; 87075; 87077; 87147; 87186; 87205

== ENCOUNTER 2022-01-28 11:21 | Emergency (ER) | payer OTHER ==
[~2022-01-28] VITALS: Ht 162.6 cm; Wt 72.6 kg
== END 2022-01-28 15:03 | disposition left against medical advice (07) ==
LOC: ER 11:21
DX: L02.426 Furuncle of left lower limb (principal); Z53.21 Procedure and treatment not carried out due to patient leaving prior to being seen by health care provider
CPT/HCPCS: 99282

== ENCOUNTER 2023-03-31 20:15 | Emergency (ER) | payer OTHER ==
[~2023-03-31] VITALS: Ht 167.6 cm; Wt 90.7 kg
[2023-03-31 20:23] VITALS: BP 129/83
[2023-03-31] MEDS ORDERED: CRUTCH2 XX (21:38)
== END 2023-03-31 21:52 | disposition home or self-care (01) ==
LOC: ER 20:15
DX: S82.442A Displaced spiral fracture of shaft of left fibula, initial encounter for closed fracture (principal); F17.210 Nicotine dependence, cigarettes, uncomplicated; Z88.5 Allergy status to narcotic agent; Z88.8 Allergy status to other drugs, medicaments and biological substances; Z88.0 Allergy status to penicillin; Z88.1 Allergy status to other antibiotic agents; Z59.02 Unsheltered homelessness; V19.9XXA Pedal cyclist (driver) (passenger) injured in unspecified traffic accident, initial encounter; Z59.82 Transportation insecurity
CPT/HCPCS: 29505; 73562-LT; 73610; 73630; 99283-25; A9270

== ENCOUNTER 2023-10-05 19:52 | Emergency (ER) | payer OTHER ==
[~2023-10-05] VITALS: Ht 162.6 cm; Wt 68.0 kg
[~2023-10-05 19:52] MED LIST changes: +CRUTCH2 XX
[2023-10-05 20:09] VITALS: BP 107/87
[2023-10-05 21:14] LABS: Influenza A, PCR POSITIVE (NEGATIVE); Influenza B, PCR NEGATIVE (NEGATIVE); Resp Syncytial Virus, PCR NEGATIVE (NEGATIVE); SARS-Cov-2 (COVID-19) PCR, MMC NEGATIVE (NEGATIVE)
== END 2023-10-05 21:54 | disposition home or self-care (01) ==
LOC: ER 19:52
PROVIDERS: Physician Assistant
DX: J10.1 Influenza due to other identified influenza virus with other respiratory manifestations (principal); Z88.5 Allergy status to narcotic agent; Z88.1 Allergy status to other antibiotic agents; Z88.6 Allergy status to analgesic agent; Z88.8 Allergy status to other drugs, medicaments and biological substances; Z79.899 Other long term (current) drug therapy; F17.210 Nicotine dependence, cigarettes, uncomplicated
CPT/HCPCS: 0241U; 99283

== ENCOUNTER 2024-02-21 16:32 | Emergency (ER) | payer OTHER ==
[~2024-02-21] VITALS: Ht 162.6 cm; Wt 68.0 kg
[~2024-02-21 16:32] MED LIST changes: +ASPERFLEX1 EACH TOP; +Robaxin750 MG PO
[2024-02-21 17:19] LABS: BASOPHILS ABSOLUTE AUTO 0.02 K/mm3 (0.00-0.23); BASOPHILS PERCENT AUTO 0 % (0-2); EOSINOPHILS ABSOLUTE AUTO 0.05 K/mm3 (0.00-0.68); EOSINOPHILS PERCENT AUTO 1 % (0-6); Hematocrit 42.3 % (33.0-51.0); Hemoglobin 13.8 g/dL (11.5-16.0); IMMATURE GRAN ABSOLUTE AUTO 0.03 K/mm3 (0.00-0.10); IMMATURE GRAN PERCENT AUTO 0 % (0-1); LYMPHOCYTES ABSOLUTE AUTO 0.83 K/mm3 (0.84-5.20); LYMPHOCYTES PERCENT AUTO 9 % (21-46); MONOCYTES ABSOLUTE AUTO 0.47 K/mm3 (0.16-1.47); MONOCYTES PERCENT AUTO 5 % (4-13); Mean Corpuscular HGB Conc 32.6 g/dL (31.5-36.5); Mean Corpuscular Volume 89 fL (80-100); Mean Platelet Volume 10.5 fL (9.1-12.4); NEUTROPHILS ABSOLUTE AUTO 8.08 K/mm3 (1.96-9.15); NEUTROPHILS PERCENT AUTO 85 % (41-73); Platelet Count 252 K/mm3 (150-400); RDW Standard Deviation 42.7 fL (35.1-46.3); Red Blood Cell Count 4.76 M/mm3 (3.80-5.20); White Blood Cell Count 9.48 K/mm3 (4.00-11.30)
[2024-02-21 17:40] LABS: Albumin, Blood 3.5 g/dL (3.4-5.0); Albumin/Globulin Ratio 0.8 (0.8-1.8); Bilirubin, Total 0.7 mg/dL (0.1-1.0); Bun/Creatinine Ratio 27.3 (12.0-20.0); Calcium, Blood 8.7 mg/dL (8.5-10.1); Creatinine, Blood 0.81 mg/dL (0.40-1.00); Globulin, Blood 4.2 g/dL (2.2-4.0); Potassium, Blood 4.3 mmol/L (3.5-5.5); Total Protein, Blood 7.7 g/dL (6.4-8.2)
[2024-02-21] MEDS ORDERED: NS 1,000 ML IV SCH (17:45)
[2024-02-21 19:15] VITALS: BP 130/83
[2024-02-21] MEDS ORDERED: ONDA4ODT MM (19:22)
== END 2024-02-21 20:55 | disposition home or self-care (01) ==
LOC: ER 16:32
PROVIDERS: Emergency Medicine
DX: K52.9 Noninfective gastroenteritis and colitis, unspecified (principal); Z88.5 Allergy status to narcotic agent; Z88.8 Allergy status to other drugs, medicaments and biological substances; Z88.1 Allergy status to other antibiotic agents; Z88.6 Allergy status to analgesic agent; Z79.899 Other long term (current) drug therapy; F17.210 Nicotine dependence, cigarettes, uncomplicated
CPT/HCPCS: 74177; 80053; 85025; 99285-25; J7030; Q9967

== ENCOUNTER 2025-02-27 08:00 | Emergency (ER) | payer OTHER ==
[~2025-02-27] VITALS: Ht 162.6 cm; Wt 72.6 kg
[~2025-02-27 08:00] MED LIST changes: +ONDA4ODT MM
[2025-02-27 08:52] VITALS: BP 121/76
[2025-02-27] MEDS ORDERED: Ibuprofen 600 MG Tab PO ONE (09:10)
[2025-02-27] MEDS ORDERED: LevoFLOXacin 500 MG Tab PO ONE (09:15)
[2025-02-27] MEDS ORDERED: MetroNIDAZOLE 500 MG Tab PO ONE (09:15)
[2025-02-27] MEDS ORDERED: IBUP800 PO (09:31)
[2025-02-27] MEDS ORDERED: METR500 PO (09:31)
[2025-02-27] MEDS ORDERED: LEVFLO500 PO (09:31)
== END 2025-02-27 10:10 | disposition home or self-care (01) ==
LOC: ER 08:00
DX: K04.7 Periapical abscess without sinus (principal); F17.210 Nicotine dependence, cigarettes, uncomplicated; Z88.1 Allergy status to other antibiotic agents; Z88.5 Allergy status to narcotic agent; Z88.0 Allergy status to penicillin; Z88.8 Allergy status to other drugs, medicaments and biological substances; Z79.899 Other long term (current) drug therapy
CPT/HCPCS: 99282; A9270

== ENCOUNTER 2025-04-28 03:28 | Day surgery (SDC) | payer OTHER ==
[~2025-04-28 03:28] MED LIST changes: +LEVFLO500 PO; +METR500 PO; +MUPIROCIN1 G1 TOP; +SENN187 PO; +SULTRIDS PO; +TRAM50 PO; +VISBIOME 112.51 EACH PO
[2025-04-28] MEDS ORDERED: Lidocaine HCl 4% Cream 5 GM ONE (13:34)
== END 2025-04-28 23:11 | disposition home or self-care (01) ==
LOC: WOUND 03:28
DX: T81.31XA Disruption of external operation (surgical) wound, not elsewhere classified, initial encounter (principal); F17.200 Nicotine dependence, unspecified, uncomplicated; Z88.0 Allergy status to penicillin; Z88.5 Allergy status to narcotic agent; Z88.1 Allergy status to other antibiotic agents; Z88.8 Allergy status to other drugs, medicaments and biological substances
CPT/HCPCS: A9270; G0463